=== PATIENT | female | born 1930 | race Caucasian/White ===

== ENCOUNTER → 2016-12-09 | Outpatient (CLI) | payer MEDICARE, BC ==
[~2016-12-09] MED LIST: ANTIVERT PO; AUGMENTIN PO; CELEBREX PO; EVISTA60 MG; EVISTA60 MG PO; IMURAN50 MG PO; LISINOPRIL; MESTINON PO; MULTIVITAMIN; NABUMETONE; PYRIDOSTIGMINE PO; VITAMIN B-6
--- NOTE | ~2016-12-09 | CT4 ---
[facility] A Service of [facility] & [facility] RADIOLOGY TEXT RESULTS PATIENT: DANA MARRUFO [facility] #: [id number] AGE: [address]: Enzo Fischer MD SEX: F ORDER DR: [id number] [facility] [address] [place], [place] [address] [id number] O MR#: [id number] #: [id number] NAME: DANA MARRUFO : 1930 SEX: F STUDY DATE/TIME: 12/09/2016 12:24 UNIT: [facility] ROOM: STUDY DESCRIPTION: CT Abd and Pelv Wo Cont Attending Physician: Enzo Fischer M.D. Referring Physician: Enzo Fischer M.D. Ordering Physician: Enzo Fischer M.D. Primary Care Physician: Enzo Fischer M.D. MEDICAL IMAGING REPORT This report is preliminary unless electronic signature is present EXAM CT abdomen and pelvis without contrast. INDICATION Microscopic hematuria for [address] of the abdomen and pelvis was performed without contrast. Coronal and sagittal reformatted images were obtained. This CT exam was performed with one or more of the following radiation dose reduction techniques: automatic exposure control, adjustment of mA and/or kV according to patient size, and iterative reconstruction. COMPARISON No comparison studies are available. FINDINGS There is a linear band of parenchymal scarring or atelectasis within the right middle lobe and also in both lower lobes. The liver, gallbladder, and spleen are unremarkable. There is no evidence for renal stone. There is a small cyst in the lower pole of the right kidney. There is a tiny hyperdense lesion also in the lower pole right kidney measuring about 8 mm. This probably represents a hyperdense cyst. The adrenal glands are unremarkable. Pancreas is unremarkable. PELVIS: The colon is unremarkable. No free fluid. There is a 3.3 cm cystic structure with some peripheral calcification in the lower pelvis on the left adjacent to the vaginal cuff. The patient has had a prior hysterectomy. This may represent a benign simple ovarian cyst, however, cystic lesion cannot be excluded. I would suggest further evaluation with a pelvic ultrasound to evaluate this area. Diverticulosis of the sigmoid. Bone windows demonstrate scoliosis. [facility] A Service of [facility] RADIOLOGY TEXT RESULTS PATIENT: DANA MARRUFO LOCATION: [facility] : [birth year] UNIT #: [id number] AGE: [address]: Enzo Fischer MD SEX: F ORDER DR: IMPRESSION 1. In the deep pelvis, adjacent to the vaginal cuff, there is a 3.4 cm cystic lesion which may be within the left ovary. It could be a benign postmenopausal cyst; however, a cystic lesion cannot be excluded. Further evaluation with pelvic ultrasound is recommended. 2. There is a simple cyst in the lower pole of the right kidney and a tiny 8 mm hyperdensity in the lower pole right kidney as well which is probably a hyperdense cyst. The size of this hyperdense lesion is too small to be seen with ultrasound and probably would be hard to characterize with CT. An MRI could be performed to further characterize this, or it could just simply be followed with another noncontrast CT in 6 months to evaluate for stability. Again, it is probably a hyperdense cyst. Old imaging if available would also be helpful for comparison. 3. No evidence of renal stone. Dictated by... William Newton M.D. THIS IS AN ELECTRONICALLY VERIFIED REPORT William Newton M.D. at 12/11/2016 9:07 AM KEIRA/tamika TD: 12/09/2016 17:19 JOB #: [id number] MEDICAL IMAGING REPORT Page 1 of 1 COPY
== END | disposition home or self-care (01) ==
LOC: CCAT 12:05
DX: R31.29 Other microscopic hematuria (principal); N28.1 Cyst of kidney, acquired; N28.89 Other specified disorders of kidney and ureter; N83.8 Other noninflammatory disorders of ovary, fallopian tube and broad ligament
CPT/HCPCS: 74176

== ENCOUNTER → 2016-12-24 | Outpatient (CLI) | payer MEDICARE, BC ==
--- NOTE | ~2016-12-24 | MR3 ---
[facility] A Service of [facility] RADIOLOGY TEXT RESULTS PATIENT: DANA MARRUFO [facility] UNIT #: [id number] AGE: [address]: Enzo Fischer MD SEX: F ORDER DR: [id number] [facility] [address] [place], [place] [address] [id number] O MR#: [id number] Acc #: [id number] NAME: DANA MARRUFO : 1930 SEX: F STUDY DATE/TIME: 12/24/2016 14:21 [facility] ROOM: STUDY DESCRIPTION: MR Abdomen Wo Contrast Attending Physician: Enzo Fischer M.D. Referring Physician: Enzo Fischer M.D. Ordering Physician: Enzo Fischer M.D. Primary Care Physician: Enzo Fischer M.D. MRI CENTER REPORT This report is preliminary unless electronic signature is present. EXAM MRI abdomen without contrast INDICATIONS Hematuria in 2017. Indeterminate right renal lesion on previous CT. Observation for renal mass. PROCEDURE Multiplanar, multisequence MR imaging of the abdomen without contrast. Patient declined intravenous contrast. COMPARISON CT from 12/09/2016 FINDINGS There is a 1.7 cm benign simple cyst at the lower pole of the right kidney. In the lower pole of the right kidney, there is a 8 mm lesion that has low T2 signal intensity and high T1 signal intensity. This probably represents a small proteinaceous or hemorrhagic cyst. Left kidney unremarkable. Liver, spleen, adrenal glands, pancreas, bowel loops show no acute abnormality when allowing for lack of contrast. Levocurvature of the lumbar spine. There is a 3 cm probable perineural cyst in the sacrum. It is unchanged from the previous CT. IMPRESSION 1. 8 mm lesion in the lower pole of the right kidney, probably represents a small benign proteinaceous or hemorrhagic cyst. Cannot be definitive given the lack of contrast. This lesion can be followed with unenhanced CT or MRI if desired clinically. 2. Small benign simple cyst in the lower pole of the right kidney. [facility] A Service of [facility] RADIOLOGY TEXT RESULTS PATIENT: DANA MARRUFO LOCATION: [facility] #: [id number] : [birth year] UNIT #: [id number] AGE: [address]: Enzo Fischer MD SEX: F ORDER DR: Dictated by... Eric Barry M.D. THIS IS AN ELECTRONICALLY VERIFIED REPORT Eric Barry M.D. at 12/24/2016 10:23 PM EED/to TD: 12/24/2016 19:07 JOB #: [id number] MRI CENTER REPORT Page 1 of 1 COPY
--- NOTE | ~2016-12-24 | US98 ---
[facility] A Service of [facility] RADIOLOGY TEXT RESULTS PATIENT: DANA MARRUFO LOCATION: [facility] : 29 UNIT #: [id number] AGE: [address]: Enzo Fischer MD SEX: F ORDER DR: [id number] [facility] [address] [place], [place] [address] [id number] O MR#: [id number] Acc #: [id number] NAME: DANA MARRUFO : 1930 SEX: F STUDY DATE/TIME: 12/24/2016 13:25 UNIT: [facility] ROOM: STUDY DESCRIPTION: US Pelvic Non-OB Complete Attending Physician: Enzo Fischer M.D. Referring Physician: Enzo Fischer M.D. Ordering Physician: Enzo Fischer M.D. Primary Care Physician: Enzo Fischer M.D. MEDICAL IMAGING REPORT This report is preliminary unless electronic signature is present EXAM Pelvic ultrasound 12/24/2016 INDICATIONS 86-year-old female with a history of left ovarian cyst. Ultrasound requested for further assessment following MRI 12/24/2016. TECHNIQUE Sonographic imaging of the pelvis was performed transabdominally and transvaginally for better evaluation of the adnexa and ovarian structures. COMPARISON STUDIES Correlation is made with MRI 12/24/2016. FINDINGS TRANSABDOMINAL: The uterus is surgically absent. The patient also has a history of right oophorectomy. The left ovary is not identified transabdominally. TRANSVAGINAL: The left ovary appears within normal limits. It measures about 3.2 x 2.5 cm. There is a dominant benign-appearing postmenopausal cyst in the left ovary measuring 2.6 cm. Left ovary demonstrates good flow at the time of the study. No adnexal mass, free fluid or drainable fluid collection. IMPRESSION 1. Benign-appearing postmenopausal cyst in the left ovary measures 2.6 cm. Left ovary otherwise unremarkable. 2. Uterus and right ovary surgically absent by history. Dictated by... Chong Berry M.D. [facility] A Service of [facility] RADIOLOGY TEXT RESULTS PATIENT: DANA MARRUFO LOCATION: [facility] #: [id number] : [birth year] UNIT #: [id number] AGE: [address]: Enzo Fischer MD SEX: F ORDER DR: THIS IS AN ELECTRONICALLY VERIFIED REPORT Chong Berry M.D. at 12/28/2016 2:09 PM RAMEZ/shaila TD: 12/25/2016 19:30 JOB #: [id number] MEDICAL IMAGING REPORT Page 1 of 1 COPY
== END | disposition home or self-care (01) ==
LOC: CGUS 12:50
DX: N28.1 Cyst of kidney, acquired (principal); N83.202 Unspecified ovarian cyst, left side; N28.89 Other specified disorders of kidney and ureter; Z90.710 Acquired absence of both cervix and uterus; Z90.721 Acquired absence of ovaries, unilateral
CPT/HCPCS: 74181; 76830; 76856